=== PATIENT | female | born 1960 | race Caucasian/White ===

== ENCOUNTER 2023-05-01 15:30 | Outpatient (REF) | payer OTHER, SELFPAY ==
[2023-05-01 16:20] LABS: Anion Gap 13.1; BUN Creatinine Ratio 42.6; Calcium 9.1 mg/dL (8.5-10.1); Carbon Dioxide 27.2 mmol/L (21.0-32.0); Chloride 109 mmol/L (98-107); Estimated GFR (African America 54 (>=60); Estimated GFR (Non-African Ame 45 (>=60); Glucose 94 mg/dL (74-106); Sodium 143 mmol/L (136-145)
[2023-05-01 16:34] LABS: Potassium 6.3 mmol/L (3.5-5.1)
[2023-05-02 03:57] LABS: Troponin I High Sensitivity 23.2 pg/mL (4.0-51.3)
== END 2023-05-01 15:31 | disposition home or self-care (01) ==
LOC: LAB 15:30
PROVIDERS: PCP Internal Medicine; Visit Provider Internal Medicine
DX: E87.6 Hypokalemia (principal); E87.5 Hyperkalemia
CPT/HCPCS: 36415; 80048; 84484

== ENCOUNTER 2023-05-02 03:26 | Outpatient (REF) | payer OTHER, SELFPAY | END 2023-05-02 03:27 | disposition home or self-care (01) | LOC: LAB 03:26 | PROVIDERS: PCP Internal Medicine; Visit Provider Internal Medicine | DX: E87.5 Hyperkalemia (principal) ==